=== PATIENT | male | born 1955 | race Caucasian/White ===

== ENCOUNTER 2017-03-07 16:01 | Emergency (ER) | payer MEDICAID ==
--- NOTE | 2017-03-07 16:17 | EDM.PDOC ---
ED HPI GENERAL MEDICAL PROBLEM - General Chief Complaint: Laceration Stated Complaint: Cut to left knee Time Seen by Provider: 03/07/17 16:04 Source of Information: Reports: Patient, Family, RN, RN Notes Reviewed History Limitations: Reports: No Limitations - History of Present Illness INITIAL COMMENTS - FREE TEXT/NARRATIVE: Patient presents the emergency room at [facility] after he sustained a laceration to the anterior left knee. The patient states that about one half hour ago, he was using a chainsaw to cut wood when the chain saw slipped causing a laceration to the left knee. The patient denies any trouble with ambulation. The patient denies any previous left knee injury/trauma. The patient is concerned because he is on anticoagulants. The patient denies any numbness tingling or paresthesia to the left lower extremity. Onset: Today Onset Date: 03/07/17 Onset Time: 15:30 - Related Data Allergies Allergy/AdvReac Type Severity Reaction Status Date / Time No Known Allergies Allergy Verified 03/07/17 16:25 Home Meds: Home Meds Acetaminophen 650 mg PO Q4HR PRN 12/04/14 [History] Carvedilol [Coreg] 3.125 mg PO BID 12/04/14 [History] Lisinopril [Prinivil] 2.5 mg PO DAILY 12/04/14 [History] Nitroglycerin [Nitrostat] 0.4 mg SL ASDIRECTED 12/04/14 [History] Ticagrelor [Brilinta] 90 mg PO BID 12/04/14 [History] atorvaSTATin [Lipitor] 80 mg PO BEDTIME 12/04/14 [History] Aspirin [Meg Chewable] 81 mg PO DAILY 01/09/15 [History] Clopidogrel [Plavix] 75 mg PO DAILY 03/07/17 [History] ED ROS GENERAL - Review of Systems Review Of Systems: See Below Constitutional: Denies: Fever, Chills, Weakness Respiratory: Reports: No Symptoms Cardiovascular: Reports: No Symptoms Skin: Reports: Wound Neurological: Reports: No Symptoms ED EXAM, SKIN/RASH Exam: See Below Exam Limited By: No Limitations General Appearance: Alert, No Apparent Distress Respiratory/Chest: No Respiratory Distress, Lungs Clear, Normal Breath Sounds Cardiovascular: Regular Rate, Rhythm Peripheral Pulses: 2+: Posterior Tibial (L), Dorsalis Pedis (L) Neurological: Alert, Oriented, No Motor/Sensory Deficits Skin: Warm, Dry, Normal Color, No Rash, Other ED SKIN PROCEDURES - Laceration/Wound Repair Left Anterior Knee Lac/Wound length In cm: 4.2 Appearance: Subcutaneous, Linear, Clean Distal NVT: Neuro & Vascular Intact, No Tendon Injury Anesthetic Type: Local Local Anesthesia - Lidocaine (Xylocaine): 1% With EPI Local Anesthetic Volume: Other (10cc) Skin Prep: Chlorhexidine (Hibiciens), Saline Saline Irrigation (cc's): 300 Exploration/Debridement/Repair: Wound Explored, in a Bloodless Field, Explored to Base, No Foreign Material Found, Wound Margins Revised Closed with: Sutures Suture Size: 4-0 # of Sutures: 11 Suture Type: Interrupted, Simple Sterile Dressing Applied: Provider Tetanus Status Addressed: Yes Complications: No Course - Vital Signs Last Recorded V/S: Last Vital Signs Temp 36.4 C 03/07/17 16:01 Pulse 71 03/07/17 16:01 Resp 18 03/07/17 16:01 BP 140/73 03/07/17 16:01 Pulse Ox 96 03/07/17 16:01 - Orders/Labs/Meds Meds: Medications Discontinued Medications Generic Name Dose Route Start Last Admin Trade Name Selina PRN Reason Stop Dose Admin Lidocaine/Epinephrine 20 ml 03/07/17 16:24 Xylocaine 1% With Epinephrine 1:100,000 INFILT 03/07/17 16:25 ONETIME ONE Departure - Departure Time of Disposition: 17:26 Disposition: Home, Self-Care 01 Condition: good Clinical Impression: Laceration of knee Qualifiers: Encounter type: initial encounter Laterality: left Qualified Code(s): S81.012A - Laceration without foreign body, left knee, initial encounter - Discharge Information Instructions: Laceration Care, Adult, Sutured Wound Care Referrals: Nayla St DO [Primary Care Provider] - Forms: ED Department Discharge Additional Instructions: 1. Stay well hydrated and rest 2. Bandage off in 24 hours 3. See Nayla in 10 days for recheck 4. Call with any concerns - Problem List Review Problem List Initiated/Reviewed/Updated: Yes
[2017-03-07 16:23] VITALS: BP 140/73
[2017-03-07] MEDS ORDERED: Lidocaine 1% with EPINEPHrine 1:100,000 20 ML MDV INFILT ONE (16:24)
== END 2017-03-07 17:40 | disposition home or self-care (01) ==
LOC: VM.ED 16:01
DX: S81.012A Laceration without foreign body, left knee, initial encounter (principal); Z79.82 Long term (current) use of aspirin; Z79.899 Other long term (current) drug therapy; W22.8XXA Striking against or struck by other objects, initial encounter
CPT/HCPCS: 12002; 99283

== ENCOUNTER 2021-11-01 21:07 | Observation (INO) | payer MEDICARE, OTHER ==
[2021-11-01] MEDS ORDERED: HYDROmorphone 1 MG/ML Syringe IVPUSH ONE (21:42)
[2021-11-01] MEDS ORDERED: Ondansetron 4 MG/2 ML SDV IVPUSH ONE (21:42)
[2021-11-01 21:58] LABS: CHLORIDE,CL 104 mmol/L (98-107); SODIUM,NA 141 mmol/L (136-145)
[2021-11-01] MEDS ORDERED: Sodium Chloride 0.9% 1,000 ML IV SCH (22:15)
[2021-11-01] MEDS ORDERED: Iopamidol 612 MG/ML 100 ML Bottle IVPUSH ONE (22:36)
[2021-11-02] MEDS ORDERED: Metoclopramide 10 MG/2 ML SDV IVPUSH ONE (00:13)
[2021-11-02] MEDS: Lactated Ringers 1,000 ML IV SCH ×2 (00:24→06:09)
[2021-11-02] MEDS ORDERED: Ondansetron 4 MG/2 ML SDV IVPUSH PRN (00:36)
[2021-11-02] MEDS: HYDROmorphone 1 MG/ML Syringe IVPUSH PRN ×2 (01:10→09:00)
[2021-11-02] MEDS: Sodium Chloride 0.9% 10 ML Syringe FLUSH PRN ×2 (01:15→23:45)
[2021-11-02] MEDS: Metoclopramide 10 MG/2 ML SDV IVPUSH SCH ×5 (06:12→23:40)
[2021-11-02] MEDS: Aspirin 81 MG Tab.Chew PO SCH (07:37)
[2021-11-02] MEDS ORDERED: Carvedilol 3.125 MG Tab PO SCH (08:00)
[2021-11-02] MEDS ORDERED: Clopidogrel 75 MG Tab PO SCH (08:00)
[2021-11-02] MEDS: Clopidogrel 75 MG Tab PO SCH (17:56)
[2021-11-02] MEDS: Pantoprazole 40 MG Vial IVPUSH SCH (17:57)
[2021-11-02] MEDS: Carvedilol 3.125 MG Tab PO SCH (19:42)
[2021-11-02] MEDS ORDERED: atorvaSTATin 40 MG Tab PO SCH (20:00)
[2021-11-03] MEDS: Pantoprazole 40 MG Vial IVPUSH SCH (05:59)
[2021-11-03] MEDS: Sodium Chloride 0.9% 10 ML Syringe FLUSH PRN (06:02)
[2021-11-03] MEDS: Metoclopramide 10 MG/2 ML SDV IVPUSH SCH ×2 (07:16→11:43)
[2021-11-03] MEDS: Carvedilol 3.125 MG Tab PO SCH (07:16)
[2021-11-03] MEDS: Clopidogrel 75 MG Tab PO SCH (07:16)
[2021-11-03] MEDS: Aspirin 81 MG Tab.Chew PO SCH (07:16)
[2021-11-03 07:17] LABS: CHLORIDE,CL 105 mmol/L (98-107); SODIUM,NA 141 mmol/L (136-145)
[2021-11-03 07:18] LABS: ANION GAP 15.1 mmol/L (5-15)
[2021-11-03] MEDS ORDERED: Metoclopramide 10 MG Tab PO PRN (10:00)
[2021-11-03 10:23] VITALS: BP 126/61; PULSE 64
== END 2021-11-03 12:20 | disposition home or self-care (01) ==
LOC: VM.ED 21:07 → INTOOBSV 11-02 00:15 → VM.MS 11-02 00:15
PROVIDERS: ADMIT Physician Assistant; ATTEND Internal Medicine
DX: R10.9 Unspecified abdominal pain (principal); R79.89 Other specified abnormal findings of blood chemistry; K59.00 Constipation, unspecified; G89.29 Other chronic pain; I25.10 Atherosclerotic heart disease of native coronary artery without angina pectoris; E78.5 Hyperlipidemia, unspecified; E53.8 Deficiency of other specified B group vitamins; E66.9 Obesity, unspecified; Z79.82 Long term (current) use of aspirin; Z87.19 Personal history of other diseases of the digestive system; Z88.8 Allergy status to other drugs, medicaments and biological substances; Z20.822 Contact with and (suspected) exposure to COVID-19
CPT/HCPCS: 36415; 74177; 74250; 80053; 81003; 83605; 83690; 83735; 84100; 85025; 85610; 85730; 86140; 96374; 96375; 96376; 99284; 99285-25; A9270-GY; C9113; G0378; J1170; J2405; J2765; J7030; J7120; Q9967; U0002

== ENCOUNTER 2021-11-26 06:51 | Day surgery (SDC) | payer MEDICARE, OTHER ==
[2021-11-26] MEDS ORDERED: Lactated Ringers 1,000 ML IV SCH (07:00)
[2021-11-26] MEDS ORDERED: Albuterol/Ipratropium 3.0-0.5 MG/3 ML Neb Soln NEB ONE (07:39)
[2021-11-26] MEDS ORDERED: fentaNYL 100 MCG/2 ML SDV ONE (08:24)
[2021-11-26] MEDS ORDERED: Propofol 200 MG/20 ML SDV ONE ×2 (08:24→08:47)
[2021-11-26 11:06] VITALS: BP 138/71; PULSE 54
== END 2021-11-26 11:00 | disposition home or self-care (01) ==
LOC: VM.SDS 06:51
PROVIDERS: ATTEND Family Medicine
DX: Z12.11 Encounter for screening for malignant neoplasm of colon (principal); D12.0 Benign neoplasm of cecum; D12.2 Benign neoplasm of ascending colon; D12.8 Benign neoplasm of rectum; K57.30 Diverticulosis of large intestine without perforation or abscess without bleeding; D72.820 Lymphocytosis (symptomatic); I25.10 Atherosclerotic heart disease of native coronary artery without angina pectoris; E78.5 Hyperlipidemia, unspecified; Z79.899 Other long term (current) drug therapy; Z88.8 Allergy status to other drugs, medicaments and biological substances; Z79.82 Long term (current) use of aspirin; Z87.891 Personal history of nicotine dependence
CPT/HCPCS: 00813; 88305; J2704; J3010; J7120; J7620-GY

== ENCOUNTER 2025-05-16 08:24 | Day surgery (SDC) | payer MEDICARE, OTHER ==
[2025-05-16] MEDS: Lactated Ringers 1,000 ML IV SCH (08:37)
[2025-05-16] MEDS ORDERED: Propofol 200 MG/20 ML SDV ONE ×3 (08:50→11:20)
[2025-05-16] MEDS ORDERED: fentaNYL 100 MCG/2 ML SDV ONE (09:29)
[2025-05-16 10:57] VITALS: BP 112/65; PULSE 60
== END 2025-05-16 11:23 | disposition home or self-care (01) ==
LOC: VM.SDS 08:24
PROVIDERS: ATTEND Family Medicine
DX: Z12.11 Encounter for screening for malignant neoplasm of colon (principal); D12.0 Benign neoplasm of cecum; D12.8 Benign neoplasm of rectum; K63.5 Polyp of colon; K57.30 Diverticulosis of large intestine without perforation or abscess without bleeding; I25.10 Atherosclerotic heart disease of native coronary artery without angina pectoris; E66.9 Obesity, unspecified; Z88.8 Allergy status to other drugs, medicaments and biological substances; Z68.35 Body mass index [BMI] 35.0-35.9, adult; Z87.891 Personal history of nicotine dependence; Z79.899 Other long term (current) drug therapy; Z86.0100 Personal history of colon polyps, unspecified
CPT/HCPCS: 00811; 88305; 99100; J2704; J3010; J7120